=== PATIENT | male | born 1995 | race Caucasian/White ===

== ENCOUNTER 2019-08-13 12:47 | Observation (INO) | payer BC, OTHER ==
[~2019-08-13] VITALS: Ht 170.2 cm; Wt 84.5 kg
[2019-08-13 15:03] LABS: BASOPHILS % (AUTO) 0.6 % (0-1); EOSINOPHILS # (AUTO) 0.2 X10'3 (0-0.9); EOSINOPHILS % (AUTO) 2.9 % (0-6); HEMOGLOBIN 15.9 g/dl (14.0-17.9); LYMPHOCYTES # (AUTO) 1.4 X10'3 (1.1-4.8); LYMPHOCYTES % (AUTO) 19.1 % (21-51); MEAN CORPUSCULAR HEMOGLOBIN 30.1 PG (27.0-31.0); MEAN CORPUSCULAR HGB CONC 34.6 g/dL (33.0-36.5); MEAN CORPUSCULAR VOLUME 86.9 FL (78-98); MEAN PLATELET VOLUME 7.5 FL (7.4-10.4); MONOCYTES # (AUTO) 0.4 X10'3 (0-0.9); MONOCYTES % (AUTO) 5.7 % (2-12); NEUTROPHILS # (AUTO) 5.4 X10'3 (1.8-7.7); NEUTROPHILS % (AUTO) 71.7 % (42-75); PLATELET COUNT 290 X10'3 (140-440); RED CELL DISTRIBUTION WIDTH 12.5 % (11.5-14.5); WHITE BLOOD COUNT 7.5 X10'3 (4.5-11.0)
[2019-08-13 15:16] LABS: ALANINE AMINOTRANSFERASE 24 U/L (12-78); ALBUMIN 3.8 G/DL (3.4-5.0); ALBUMIN/GLOBULIN RATIO 1.1 (1.1-1.5); ALKALINE PHOSPHATASE 68 IU/L (46-116); ANION GAP 4 (8-16); ASPARTATE AMINO TRANSFERASE 12 U/L (10-37); BILIRUBIN,TOTAL 0.5 MG/DL (0.1-1.0); BLOOD UREA NITROGEN 16 MG/DL (7-18); CALCIUM 9.2 MG/DL (8.5-10.1); CHLORIDE 104 MMOL/L (99-107); CREATININE 0.94 MG/DL (0.60-1.10); GLUCOSE 307 MG/DL (70-104); POTASSIUM 4.1 MMOL/L (3.5-5.1); SODIUM 138 MMOL/L (135-145); TOTAL PROTEIN 7.4 G/DL (6.4-8.2); eGFR > 90 ML/MIN
[2019-08-13 15:24] LABS: MAGNESIUM 1.8 MG/DL (1.5-2.4)
[2019-08-13] MEDS ORDERED: INSU100V39 SQ (17:00)
[2019-08-13] MEDS ORDERED: GLUC1KIT IM (17:00)
[2019-08-13 17:13] LABS: ETHANOL < 0.010 GM/DL (0.0-0.010)
[2019-08-13] MEDS ORDERED: magnesium hydroxide 30ml (MOM) UD suspension PO PRN (17:15)
[2019-08-13] MEDS ORDERED: ondansetron/PF 4mg/2ml inj IV PRN (17:15)
[2019-08-13] MEDS ORDERED: acetaminophen 325mg tablet PO PRN (17:15)
[2019-08-13] MEDS ORDERED: mag hydrox/Alum hydrox/simeth 30ml oral suspension PO PRN (17:15)
[2019-08-13 17:54] LABS: URINE AMPHETAMINE SCREEN NEGATIVE (Neg); URINE BARBITUATE SCREEN NEGATIVE (Neg); URINE BENZODIAZEPINES SCREEN NEGATIVE (Neg); URINE CANNABINOID SCREEN NEGATIVE (Neg); URINE COCAINE SCREEN NEGATIVE (Neg); URINE METHADONE SCREEN NEGATIVE (Neg); URINE OPIATE SCREEN NEGATIVE (Neg); URINE PHENCYCLIDINE SCREEN NEGATIVE (Neg)
[2019-08-13] MEDS ORDERED: glucagon, human recombinant 1mg kit IM PRN (17:55)
--- NOTE | 2019-08-13 18:30 | NUR ---
Patient in room PCU 3019. I have received report from DIONE DUNAWAY IN ED and had the opportunity to ask questions and assume patient care.
--- NOTE | 2019-08-13 19:30 | NUR ---
INSULIN PUMP PATIENT HAS BEEN ADMITTED, INSULIN PUMP RUNNING, PATIENT MONITORS/SELF INJECTS WHEN NEEDED
[2019-08-13 20:00] VITALS: BP_SYST 128; BP_SYST 133; BP_DIAS 71; BP_DIAS 76; BP_DIAS 89
[2019-08-13] MEDS: normal saline 1000ml 1,000 ML IV SCH (22:06)
[2019-08-14] MEDS: normal saline 1000ml 1,000 ML IV SCH (03:12)
[2019-08-14 06:00] VITALS: BP 95/55
--- NOTE | 2019-08-14 06:30 | NUR ---
Problems reprioritized. Patient report given, questions answered & plan of care reviewed with CORI DUNAWAY.
--- NOTE | 2019-08-14 06:44 | NUR ---
Patient in room PCU 3019. I have received report from Cristina DUNAWAY and had the opportunity to ask questions and assume patient care.
--- NOTE | 2019-08-14 06:48 | NUR ---
Paged EEG nurse for EEG, will preform EEG around 0800/0830, will continue to monitor.
--- NOTE | 2019-08-14 07:23 | NUR ---
PAGER ID: [phone] MESSAGE: [phone] Beto Garcia: Pt is DM and has insulin pump and wants to continue to use the pump. Can i get orders to continue to use insulin pump? Thanks Victor Hugo
--- NOTE | 2019-08-14 07:56 | NUR ---
received orders from dr. leal that it is OK for patient to use insulin pump and to monitor BS ACHS, will continue to monitor.
[2019-08-14 08:00] VITALS: BP_SYST 115; BP_SYST 117; BP_SYST 121; BP_DIAS 78; BP_DIAS 80; BP_DIAS 81
[2019-08-14] MEDS ORDERED: insulin Lispro (HumaLOG) vial - multi-dose SQ SCH (08:00)
[2019-08-14] MEDS ORDERED: pneumococcal 23-VAL P-sac vacc 25 mcg/0.5ml vial IMVAC ONE (10:00)
[2019-08-14] MEDS ORDERED: FLU VACC QS2019-20 36MOS UP/PF 60 MCG/0.5 ML SYRINGE IMVAC ONE (10:00)
[2019-08-14 11:00] VITALS: BP 121/78
[2019-08-14 15:00] VITALS: BP 125/80
--- NOTE | 2019-08-14 16:59 | NUR ---
PAGER ID: [phone] MESSAGE: [phone] Beto Garcia: Is it ok for the pt to continue to be without alarm security or surveillance monitor? Thanks Victor Hugo [phone]
--- NOTE | 2019-08-14 19:01 | NUR ---
Pt is stable for discharge per md orders, discharge instructions reviewed w/ pt and all questions answered, no new medications on discharge list, tele monitor 51 removed and returned, PIV dc'ed and clean dry dressing in place, pt discharges from unit at 1830 to home, pt walked down to lobby with hospital staff and significant other to private vehicle, all belongings w/ pt at time of discharge.
== END 2019-08-14 18:30 | disposition home or self-care (01) ==
LOC: ER 12:47 → ED HOLD 17:12 → PCU 3S 18:57
PROVIDERS: ADMIT Family Medicine; ATTEND Family Medicine
DX: R55 Syncope and collapse (principal); E11.9 Type 2 diabetes mellitus without complications; Z79.4 Long term (current) use of insulin; Z88.1 Allergy status to other antibiotic agents
CPT/HCPCS: 36415; 70450; 71045; 80053; 80305; 80320; 82948; 83735; 83880; 84484; 85025; 87081; 93005; 93306; 95816; 96360; 96361; 99284; G0378; J1815; J7030; Q2037

== ENCOUNTER 2019-08-31 16:41 | Emergency (ER) | payer BC ==
[~2019-08-31] VITALS: Ht 170.2 cm; Wt 96.0 kg
[~2019-08-31 16:41] MED LIST: GLUC1KIT IM; INSU100V39 SQ
[2019-08-31] MEDS ORDERED: LORazepam 1 MG tablet PO ONE (18:00)
[2019-08-31] MEDS ORDERED: meclizine 12.5mg tablet PO ONE (18:00)
[2019-08-31 18:16] VITALS: BP 118/78
[2019-08-31] MEDS ORDERED: MECL12.584 PO (19:05)
== END 2019-08-31 19:17 | disposition home or self-care (01) ==
LOC: ER 16:42
DX: R42 Dizziness and giddiness (principal); E11.9 Type 2 diabetes mellitus without complications; Z79.4 Long term (current) use of insulin; Z79.899 Other long term (current) drug therapy
CPT/HCPCS: 82948; 93005; 99283; J8597